=== PATIENT | female | born 1995 | race Two or more races ===

== ENCOUNTER 2019-02-06 11:39 | Day surgery (SDC) | payer BC, OTHER ==
[2019-02-06] MEDS ORDERED: PROPOFOL 20 ML ONE ×3 (11:54→13:36)
[2019-02-06 12:38] VITALS: BMI 30.9
[2019-02-06] MEDS ORDERED: LIDOCAINE HCL/PF 2% SDV 5ML VIAL ONE (13:35)
[2019-02-06 14:03] VITALS: TEMP 97.9
[2019-02-06 14:38] VITALS: BP 120/70
[2019-02-06 14:44] VITALS: PULSE 87
--- NOTE | 2019-02-08 18:28 | PATH ---
Surgical Pathology Report Patient Name: DC HARTMAN [facility]. Rec. #: [id number] /Age/Gender: 1995 (Age: 23) / F Account: [id number] Location: [facility] Taken: 02/06/2019 Received: 02/06/2019 Reported: 02/08/2019 Physicians: Sully Deleon M.D. Specimen(s) Received A: SECOND PORTION DUODENUM B: ANTRUM & THICKENED PRE-PYLORI FOLD C: GE JUNCTION Clinical History Abdominal pain Postoperative diagnosis: Duodenitis, gastritis, thickened fold Final Diagnosis A. SECOND PORTION DUODENUM, BIOPSY: DUODENUM MUCOSA WITH NO SIGNIFICANT PATHOLOGIC CHANGE. NO HISTOLOGIC EVIDENCE OF CELIAC DISEASE. B. GASTRIC ANTRUM AND THICKENED PRE-PYLORIC FOLD, BIOPSY: GASTRIC MUCOSA WITH CHRONIC GASTRITIS. REACTIVE GASTROPATHY PRESENT. IMMUNOSTAIN FOR H. PYLORI IS NEGATIVE. NEGATIVE FOR INTESTINAL METAPLASIA. C. GE JUNCTION, BIOPSY: COLUMNAR (GASTRIC) / SQUAMOUS MUCOSA WITH NO SIGNIFICANT PATHOLOGIC CHANGE. NEGATIVE FOR INTESTINAL METAPLASIA. Electronically Signed Shey Garcia M.D. Gross Description A. Received in formalin, labeled "biopsy second portion of duodenum" is a aguilar, irregular portion of soft tissue measuring 0.3 cm. in greatest dimension. The specimen is submitted in toto in one cassette. B. Received in formalin, labeled "biopsy gastric antrum "" is a aguilar, irregular portion of soft tissue measuring 0.5 cm. in greatest dimension. The specimen is submitted in toto in one cassette. C. Received in formalin, labeled "biopsy GE junction" is a aguilar, irregular portion of soft tissue measuring 0.6 cm. in greatest dimension. The specimen is submitted in toto in one cassette. 02/07/2019 [facility]02/07/2019
== END 2019-02-06 14:50 | disposition home or self-care (01) ==
LOC: FASU-ENDO 11:39
PROVIDERS: ATTEND Internal Medicine Gastroenterology
PROC: 0DB68ZX Excision of Stomach, Via Natural or Artificial Opening Endoscopic, Diagnostic (ICD-10-PCS; 2019-02-06)
PROC: 0DB58ZX Excision of Esophagus, Via Natural or Artificial Opening Endoscopic, Diagnostic (ICD-10-PCS; 2019-02-06)
PROC: 0DB98ZX Excision of Duodenum, Via Natural or Artificial Opening Endoscopic, Diagnostic (ICD-10-PCS; principal; 2019-02-06 13:40)
DX: K29.50 Unspecified chronic gastritis without bleeding (principal); K29.80 Duodenitis without bleeding; K31.89 Other diseases of stomach and duodenum
CPT/HCPCS: 84703; 88305-TC; 88342-TC